=== PATIENT | female | born 1970 | race Caucasian/White ===

== ENCOUNTER → 2022-05-26 | Outpatient (CLI) | payer BC, SELFPAY ==
--- NOTE | 2022-05-26 16:23 | CT_ITS ---
STUDY: CT ABDOMEN AND PELVIS WITHOUT CONTRAST REASON FOR EXAM: Female, 51 years old. L BACK PAIN, KIDNEY STONE RADIATION DOSAGE (If Supplied By Facility): CTDIvol = ( 8.39 ) mGy, DLP = ( 392.12 ) mGycm TECHNIQUE: Transaxial images were obtained from the dome of the diaphragm to the symphysis pubis without oral contrast, and without intravenous contrast. Sagittal and coronal images were reconstructed. Individualized dose optimization techniques were used for this CT. COMPARISON: None. FINDINGS: Lung bases clear. Unremarkable liver, spleen, pancreas, adrenals, and gallbladder on this unenhanced study. Bilateral medullary nephrocalcinosis. Also, nonobstructing stones in the bilateral kidneys measuring up to 0.9 cm. 2 adjacent stones in the mid left ureter at the level of left transverse process of L4 measuring up to 1.1 x 0.5 cm and causing moderate upstream hydroureteronephrosis. Normal appendix. Bowel loops nonobstructed. No free air or free fluid. No adenopathy. No abdominal aortic aneurysm. Sections through the pelvis demonstrate an approximately 2.6 cm cystic area in the left ovary. Nabothian cysts in the cervix. No radiopaque stone in the urinary bladder. Mild multilevel lumbar spondylosis. CT/Abdomen/Pelvis without Cont IMPRESSION: 2 adjacent stones in the mid left ureter causing moderate upstream hydroureteronephrosis. Bilateral measuring a focal stenosis and nonobstructing renal stones. A 2.6 under cystic area in the left ovary, amenable to further evaluation by pelvic ultrasound. Electronically Signed: Sam Metcalf MD at 16:59 EDT ,
== END | disposition home or self-care (01) ==
LOC: CT 16:22
PROVIDERS: PCP Pediatrics; Referring Provider Urology; Visit Provider Urology
DX: N20.0 Calculus of kidney (principal); M54.9 Dorsalgia, unspecified; R11.2 Nausea with vomiting, unspecified; N32.89 Other specified disorders of bladder
CPT/HCPCS: 74176

== ENCOUNTER → 2022-06-01 | Outpatient (CLI) | payer BC, SELFPAY ==
--- NOTE | 2022-06-01 15:20 | RAD_ITS ---
STUDY: AP ABDOMEN PELVIS X-RAY SERIES OF 1529 HOURS ON 06/01/2022 REASON FOR EXAM: 51-year-old female with kidney stones. TECHNIQUE: 2 AP x-rays of the abdomen and pelvis were obtained. COMPARISON: None. FINDINGS: Normal osseous structures. No identification of pelvic bone or hip fractures. No hip dislocations. Mild constipation. No abdominal organomegaly. No abnormal intra-abdominal collections of air. There are multiple calcifications or calculi ranging from 6 mm in length to 2 mm in diameter in the region of the calyces of both kidneys. There is an 8 mm in greatest diameter calcification adjacent to the left L4 transverse process in the region of the left ureter that could possibly represent a left ureteral calculus. Several pelvic phleboliths are noted. RAD/Abdomen Single View IMPRESSION: 1. Multiple calcifications are calculi ranging from 6 mm to 2 mm in diameter in the region of the calyces of both kidneys. 2. Presence of an 8mm in greatest diameter calcification or calculus in the region of the mid left ureter (at the level of the left L4 transverse process). If this does not represent a left ureteral calculus, then it represents a mesenteric calcification. 3. Multiple pelvic phleboliths. 4. No abdominal organomegaly. No abnormal intra-abdominal collections of air. 5. Mild constipation. 6. No intestinal obstruction. 7. Normal osseous structures. Electronically Signed: Deon Orellana MD at 2:48 EDT ,
== END | disposition home or self-care (01) ==
LOC: MTRAD 15:13
PROVIDERS: PCP Pediatrics; Referring Provider Urology; Visit Provider Urology
DX: K59.00 Constipation, unspecified (principal); N20.0 Calculus of kidney
CPT/HCPCS: 74018

== ENCOUNTER 2022-06-05 10:18 | Day surgery (SDC) | payer BC, SELFPAY ==
[2022-06-05] VITALS (11 sets, daily range): BP systolic 111–136; BP diastolic 70–89; PULSE 74–93; RESP 16; TEMP 36.2–37.3; O2SAT 97–100; BMI 25.7
[2022-06-05 10:48] LABS: Internal QC Validated? YES +Cl - CLEAR BKGD; Pregnancy, Urine Negative Negative
[2022-06-05] MEDS: Lactated Ringers 1,000 ML 30 ML IV (11:07)
[2022-06-05] MEDS: Cefazolin 2 GM in 0.9% Normal Saline 100 ML IV (11:49)
--- NOTE | 2022-06-05 11:49 | DCINST_ITS ---
Discharge Instructions Diet Discharge Diet: No restrictions Activity Discharge Activity: Return to Normal Activity, May Not Drive (while on narcotics) and May Shower May resume sexual activity in: No Restrictions Dressing / Incision Call your doctor if you observe: Fever of 101 or Higher, Inability to urinate and Inability to have a bowel movement Follow Up Care Please Follow Up With: Liseth Beyer MD When: 2-3 weeks with KUB for stent removal. call office for appt Test Results: Test results from this visit will be discussed in further detail at your follow- up appointment, if applicable. Discharge Plan Admission Attending Provider: Liseth Beyer Primary Care Provider: Mara Aguayo Discharge Orders/Prescriptions Prescriptions: New ondansetron HCl [ondansetron HCl] 8 mg tablet 8 mg PO Q8H PRN PRN (Reason: Nausea) 7 Days Qty: 20 0RF oxycodone-acetaminophen [Percocet] 5-325 mg tablet 1 tab PO Q8H PRN (Reason: pain) 5 Days Qty: 15 0RF phenazopyridine [Pyridium] 200 mg tablet 200 mg PO TID PRN PRN (Reason: Bladder Spasms) 7 Days Qty: 30 0RF Continued potassium citrate 10 mEq (1,080 mg) tablet extended release 1 tab PO DAILY cephalexin 500 mg Capsule 500 mg PO BID losartan 25 mg tablet 25 mg PO DAILY Label Comments: TAKE 1 TABLET BY MOUTH EVERY DAY Referrals / Follow Up: Mara Aguayo MD [Primary Care Provider] - Disposition Disposition (needs filled in before D/C Order can be placed): Home, Self Care
--- NOTE | 2022-06-05 11:53 | OP.PCM_ITS ---
Report of Operation Date of Procedure: 06/05/22 Pre-Operative Diagnosis: Left ureteral and left renal calculus Post-Operative Diagnosis: Same Surgery/Procedure Performed:: Cystoscopy, left ureteral stent insertion, left ureteral and renal extracorporal shockwave lithotripsy Surgeon: Liseth Beyer Type of Anesthesia: General Specimen's removed: None Description of Procedure: The patient is a 51-year-old female with bilateral renal stones secondary to medullary sponge kidney. She presented to the office with discomfort and was found to have a mid ureteral obstructing stone on the left. She now presents for cystoscopy with left ureteral stent insertion and shockwave lithotripsy. Informed consent was obtained. The patient was taken to the operating room and placed on the lithotripter table. Anesthesia monitored the head, neck, airway, IV access and vital signs throughout the case. Once anesthesia was appropriate ministered the patient was placed into dorsal lithotomy position was prepped and draped in usual sterile fashion. The cystoscope was then inserted through the urethra under direct visualization into the urinary bladder. The bladder mucosa was visualized in its entirety and there were no abnormalities identified. The left ureteral orifice was intubated with an 0.035 Glidewire which passed alongside the stone into the renal pelvis as seen on fluoroscopy. A 6 Sinhala 24 cm JJ stent was then passed over the wire with good curling in the renal pelvis as well as the urinary bladder. The patient's bladder was then emptied and the cystoscope was removed. She was repositioned and 4000 shocks were then applied to the ureteral stone with what appeared to be successful stone management. The stones in the kidney were then shocked as well. The patient was then awakened and taken to the recovery room in good condition. There were no complications during this procedure. Grafts/Implants Used: 6 x 24 JJ stent Complications None Admit VTE Documentation VTE Present on Admission: Yes VTE Mechan Device Prophylaxis: SCD's VTE Pharm Prophylaxis ordered?: No Reason prophylaxis not ordered:: Treatment Not Indicated
[2022-06-05] MEDS: Ketorolac 30 MG/ML Syringe IV (15:36)
[2022-06-05] MEDS: Acetaminophen 325 MG Tablet PO (16:45)
[2022-06-05] MEDS: oxyCODONE 5 MG Tablet PO (16:45)
== END 2022-06-05 17:35 | disposition home or self-care (01) ==
LOC: SDC 10:19 → AC 10:20
PROVIDERS: Anesthesiology; PCP Pediatrics; Referring Provider Urology; Visit Provider Urology
PROC: (CPT 50590; principal; 2022-06-05 11:45)
DX: N20.2 Calculus of kidney with calculus of ureter (principal); I10 Essential (primary) hypertension; Z79.899 Other long term (current) drug therapy
CPT/HCPCS: 50590; 00873; 81025; J7120; C2617; J2405

== ENCOUNTER → 2022-06-19 | Outpatient (CLI) | payer BC, SELFPAY ==
--- NOTE | 2022-06-19 09:15 | RAD_ITS ---
STUDY: AP ABDOMEN X-RAY 0936 HOURS ON 06/19/2022 REASON FOR EXAM: 51-year-old female. Left ureteral stent. TECHNIQUE: A single view AP supine abdomen was performed per protocol. COMPARISON: 05/02/2022. FINDINGS: There has been interval placement of a left ureteral stent since the previous study of 05/02/2022. The upper pigtail is in the region of the left renal pelvis and lower pigtail is in the region of the left bladder. There is no abdominal organomegaly. There are multiple calcifications in the pelvis probably represent phleboliths. There is no distinct evidence of calcification along the path of left ureteral stent. There is mild to moderate constipation. The osseous structures are normal. RAD/Abdomen Single View IMPRESSION: 1. Interval placement of a left ureteral stent since the previous study of 05/02/2022. 2. Several calcifications are noted in the pelvis probably represent phleboliths. There is no distinct calcification along the pathway of the left ureteral stent. 3. No abdominal organomegaly. 4. Mild to moderate constipation. 5. Normal osseous structures. Electronically Signed: Deon Orellana MD at 2:04 EDT ,
== END | disposition home or self-care (01) ==
LOC: MTRAD 09:14
PROVIDERS: PCP Pediatrics; Referring Provider Urology; Visit Provider Urology
DX: N20.0 Calculus of kidney (principal)
CPT/HCPCS: 74018

== ENCOUNTER → 2022-07-01 | Outpatient (CLI) | payer BC, SELFPAY | END | disposition home or self-care (01) | PROVIDERS: PCP Pediatrics; Visit Provider Urology | DX: Z01.812 Encounter for preprocedural laboratory examination (principal); N39.0 Urinary tract infection, site not specified | CPT/HCPCS: 87086; 87088 ==

== ENCOUNTER 2022-07-07 08:50 | Day surgery (SDC) | payer BC, SELFPAY ==
[2022-07-07] VITALS (7 sets, daily range): BP systolic 118–150; BP diastolic 66–100; PULSE 75–97; RESP 16–18; TEMP 36.2–36.9; O2SAT 95–100; BMI 26.2
[2022-07-07] MEDS: Lactated Ringers 1,000 ML 15 ML IV (09:15)
--- NOTE | 2022-07-07 09:58 | OP.PCM_ITS ---
Problems Associated Problem List Diagnoses (1) Left ureteral stone: Report of Operation Date of Procedure: 07/07/22 Pre-Operative Diagnosis: Bilateral renal calculi, left ureteral calculi Post-Operative Diagnosis: Same Surgery/Procedure Performed:: Right renal extracorporal shockwave lithotripsy, cystoscopy with left retrograde pyelogram, right ureteral stent insertion, left distal ureteral extracorporal shockwave lithotripsy Surgeon: Liseth Beyer Type of Anesthesia: General Description of Procedure: The patient is a 51-year-old female with multiple bilateral stones. She is status post left extracorporal shockwave lithotripsy and now presents for treatment of her right side. Informed consent has been obtained. The patient was taken to the operating room placed on the operating room table. Anesthesia monitored the head, neck, airway, IV access and vital signs throughout the case. Once anesthesia was appropriate ministered, the patient was placed into dorsal lithotomy position and was prepped and draped in usual sterile fashion. There were multiple large stones seen along the left ureteral stent. The cystoscope was inserted through the urethra into her bladder using direct visualization. The left ureteral stent was visualized, a Pollick catheter was inserted alongside the stent and a retrograde pyelogram was performed under fluoroscopic visualization confirming several large distal ureteral calculi. At this time the right ureteral orifice was intubated with a 0.035 Glidewire and a 6 [place]ian 24 JJ stent was inserted over the Glidewire with good curling in the renal pelvis as well as the urinary bladder. The patient's bladder was then emptied and the cystoscope was removed. The patient was then repositioned on the table and shockwave lithotripsy of her right kidney was performed with a total of 3000 shocks given. The distal left ureter was then given a total of 3000 shocks and the stones appeared to be well fragmented. She tolerated the procedure well and was awakened and taken to the recovery room in good condition. There were no complications during this procedure. Grafts/Implants Used: 6 x 24 JJ stent Complications None Admit VTE Documentation VTE Present on Admission: Yes VTE Mechan Device Prophylaxis: SCD's VTE Pharm Prophylaxis ordered?: No Reason prophylaxis not ordered:: Treatment Not Indicated
--- NOTE | 2022-07-07 10:00 | DCINST_ITS ---
Discharge Instructions Diet Discharge Diet: No restrictions Activity Discharge Activity: Return to Normal Activity May resume sexual activity in: No Restrictions Dressing / Incision Call your doctor if you observe: Fever of 101 or Higher, Inability to urinate and Inability to have a bowel movement Follow Up Care Please Follow Up With: Liseth Beyer MD When: 3 weeks in the office with a KUB, call for appointment Test Results: Test results from this visit will be discussed in further detail at your follow- up appointment, if applicable. Discharge Plan Admission Attending Provider: Liseth Beyer Primary Care Provider: Mara Aguayo Discharge Orders/Prescriptions Prescriptions: New oxycodone-acetaminophen [oxycodone-acetaminophen] 5-325 mg tablet 2 tab PO Q8H PRN PRN (Reason: Pain) 7 Days Qty: 20 0RF Myrbetriq 50 mg tablet extended release 24 hr 50 mg PO DAILY Qty: 30 0RF methen-sod phos-meth blue-hyos [Urogesic-Blue] 81.6-40.8-0.12 mg tablet 1 tab PO .QID PRN (Reason: bladder spasms) 7 Days Qty: 30 0RF Continued potassium citrate 10 mEq (1,080 mg) tablet extended release 1 tab PO DAILY losartan 25 mg tablet 25 mg PO DAILY Label Comments: TAKE 1 TABLET BY MOUTH EVERY DAY ondansetron HCl 8 mg tablet 8 mg PO Q8H PRN PRN (Reason: Nausea) 7 Days Qty: 20 0RF oxycodone-acetaminophen [Percocet] 5-325 mg tablet 1 tab PO Q8H PRN (Reason: pain) 5 Days Qty: 15 0RF Urelle 81-10.8-40.8 mg Tablet 1 tab PO TID PRN (Reason: Pain) Myrbetriq 50 mg Tablet Extended Release 24 Hr 50 mg PO DAILY Referrals / Follow Up: Mara Aguayo MD [Primary Care Provider] - Disposition Disposition (needs filled in before D/C Order can be placed): Home, Self Care
[2022-07-07] MEDS: Cefazolin 2 GM in 0.9% Normal Saline 100 ML IV (10:42)
[2022-07-07] MEDS: Ondansetron 4 MG/2 ML Vial IV (14:23)
[2022-07-07] MEDS: Phenazopyridine 95 MG Tablet 190 MG PO (15:03)
[2022-07-07] MEDS: Mirabegron 50 MG TAB.ER.24H PO (15:03)
== END 2022-07-07 16:07 | disposition home or self-care (01) ==
LOC: SDC 08:51 → AC 08:52
PROVIDERS: PCP Pediatrics; Referring Provider Urology; Visit Provider Urology
PROC: 0TJ98ZZ Inspection of Ureter, Via Natural or Artificial Opening Endoscopic (ICD-10-PCS; CPT 52352; principal; 2022-07-07 10:10)
DX: N20.2 Calculus of kidney with calculus of ureter (principal); I10 Essential (primary) hypertension; Z79.899 Other long term (current) drug therapy; Q61.5 Medullary cystic kidney
CPT/HCPCS: 52332; 50590; 00910; J7120; C2617; J2405

== ENCOUNTER → 2022-07-28 | Outpatient (CLI) | payer BC, SELFPAY ==
--- NOTE | 2022-07-28 10:34 | RAD_ITS ---
STUDY: X-RAY - ABDOMEN/PELVIS REASON FOR EXAM: Female, 51 years old. KUB- RENAL CALC TECHNIQUE: Single AP view of the abdomen / pelvis. COMPARISON: None. FINDINGS: Bilateral ureteral stents are in good position. Innumerable bilateral kidney stones are noted the largest measures 4 mm is in the right kidney. There is an unremarkable bowel gas pattern. There is no demonstrated free abdominal air. The visualized liver, spleen and kidneys are grossly normal in size . Normal soft tissue structures. Normal visualized osseous structures. RAD/Abdomen Single View IMPRESSION: Bilateral ureteral stents are in good position. Innumerable bilateral kidney stones are noted the largest measures 4 mm is in the right kidney. Electronically Signed: Luis Lazo MD at 13:00 EDT ,
== END | disposition home or self-care (01) ==
PROVIDERS: PCP Pediatrics; Referring Provider Urology; Visit Provider Urology
DX: N20.0 Calculus of kidney (principal)
CPT/HCPCS: 74018

== ENCOUNTER → 2022-09-30 | Outpatient (CLI) | payer BC, SELFPAY ==
--- NOTE | 2022-09-30 09:01 | RAD_ITS ---
STUDY: X-RAY - ABDOMEN/PELVIS REASON FOR EXAM: Female, 51 years old. Renal stones. TECHNIQUE: Single AP view of the abdomen / pelvis on 2 images. COMPARISON: July 28, 2022. FINDINGS: Bilateral ureteral stents have been removed since the prior study. Multiple small calcifications projected over both kidneys, slightly decreased since the prior study. Normal bowel gas pattern with air seen to the rectum. The visualized liver, spleen and kidneys are grossly normal in size and morphology. Phleboliths. Normal visualized osseous structures. RAD/Abdomen Single View IMPRESSION: Removal of bilateral ureteral stents. Calcifications projected over both kidneys which have decreased in number since the prior study. No acute finding. Electronically Signed: Frank Hoang, at 10:19 EST ,
== END | disposition home or self-care (01) ==
PROVIDERS: PCP Pediatrics; Referring Provider Urology; Visit Provider Urology
DX: N20.0 Calculus of kidney (principal)
CPT/HCPCS: 74018

== ENCOUNTER 2022-10-08 11:44 | Day surgery (SDC) | payer BC, SELFPAY ==
[2022-10-08] VITALS (8 sets, daily range): BP systolic 114–130; BP diastolic 65–94; PULSE 75–93; RESP 16–17; TEMP 36.4–36.8; O2SAT 92–100; BMI 26.9
[2022-10-08] MEDS: Lactated Ringers 1,000 ML 15 ML IV ×2 (12:10→17:40)
[2022-10-08] MEDS: Cefazolin 2 GM in 0.9% Normal Saline 100 ML IV (14:22)
--- NOTE | 2022-10-08 15:31 | DCINST_ITS ---
Discharge Instructions Diet Discharge Diet: No restrictions Activity Discharge Activity: Return to Normal Activity Dressing / Incision Call your doctor if you observe: Fever of 101 or Higher, Inability to urinate and Inability to have a bowel movement Follow Up Care Please Follow Up With: Liseth Beyer MD When: in office with JAROD in 2-3 weeks Test Results: Test results from this visit will be discussed in further detail at your follow- up appointment, if applicable. Discharge Plan Admission Attending Provider: Liseth Beyer Primary Care Provider: Mara Aguayo Discharge Orders/Prescriptions Prescriptions: New oxycodone-acetaminophen [oxycodone-acetaminophen] 5-325 mg tablet 1 tab PO Q8H PRN PRN (Reason: Pain) 3 Days Qty: 14 0RF cephalexin [cephalexin] 500 mg capsule 500 mg PO Q12 3 Days Qty: 6 0RF Continued potassium citrate 10 mEq (1,080 mg) tablet extended release 1 tab PO DAILY valsartan-hydrochlorothiazide 160-25 mg Tablet 1 tab PO DAILY Referrals / Follow Up: Mara Aguayo MD [Primary Care Provider] - Disposition Disposition (needs filled in before D/C Order can be placed): Home, Self Care
--- NOTE | 2022-10-08 15:33 | PCM.OPRPT ---
Report of Operation Date of Procedure: 10/08/22 Pre-Operative Diagnosis: Right renal stones Post-Operative Diagnosis: Same Surgery/Procedure Performed:: Right renal extracorporal shockwave lithotripsy Surgeon: Liseth Beyer Type of Anesthesia: General Description of Procedure: Jess has known right renal stones and presents today for definitive surgical intervention with extracorporal shockwave lithotripsy. Informed consent was obtained. The patient was taken to the operating room and placed on the operating room table. Anesthesia monitored the head, neck, airway, IV access and vital signs throughout the case. Once anesthesia was appropriately administered, the patient was aligned with the lithotripter. The stones were easily identified. A total of 3000 shocks were applied to the stones which appeared to be well fragmented at the conclusion of the case. The patient was then awakened and taken to the recovery room in good condition. There were no complications during this procedure. Complications None Admit VTE Documentation VTE Present on Admission: Yes VTE Mechan Device Prophylaxis: SCD's VTE Pharm Prophylaxis ordered?: No Reason prophylaxis not ordered:: Treatment Not Indicated
--- NOTE | 2022-10-08 17:28 | SUR.PHASEII ---
PATIENT REPEATEDLY C/O DIZZINESS. REEDUCATED ON SIDE EFFECTS OF GENERAL ANESTHESIA AND NARCOTIC ADMINISTRATION. NO NAUSEA AT THIS TIME. PATIENT STATES THIS IS HER THIRD SURGERY FOR KIDNEY STONES SINCE JUNE, REPORTS SHE HAD DIZZINESS AFTER THOSE PROCEDURES WELL. SUPPORT & REASSURANCE PROVIDED. AT BEDSIDE.
== END 2022-10-08 19:06 | disposition home or self-care (01) ==
LOC: SDC 11:46 → AC 12:03
PROVIDERS: PCP Pediatrics; Referring Provider Urology; Visit Provider Urology
PROC: (CPT 50590; principal; 2022-10-08 13:40)
DX: N20.0 Calculus of kidney (principal); I10 Essential (primary) hypertension; Z79.899 Other long term (current) drug therapy
CPT/HCPCS: 50590; 00873; J7120; J2405

== ENCOUNTER → 2022-10-26 | Outpatient (CLI) | payer BC, SELFPAY ==
--- NOTE | 2022-10-26 14:01 | RAD_ITS ---
STUDY: X-RAY - ABDOMEN/PELVIS REASON FOR EXAM: Female, 52 years old. STONES TECHNIQUE: Two AP supine views of the abdomen and pelvis. There is one focal view KUB one view of the pelvis. COMPARISON: May 26, 2022 CT scan abdomen and pelvis on the September 30, 2022 KUB FINDINGS: Normal visualized lung bases. The lung bases are mostly out of the [id number]. There is no demonstrated free abdominal air. Multiple punctate calcifications seen in the left upper quadrant which likely represent the nephrolithiasis seen on prior study. There is a vague demonstration of calcification in the right upper quadrant, right kidney. There is partial visualization of the right kidney due to overlying moderate stool within the colon. There are stable phleboliths within the pelvis. RAD/Abdomen Single View IMPRESSION: Bilateral nephrolithiasis. Stable bilateral pelvic phleboliths. Mild to moderate stool in the colon. Electronically Signed: Ondina Crum MD at 17:40 EST ,
== END | disposition home or self-care (01) ==
PROVIDERS: PCP Pediatrics; Referring Provider Urology; Visit Provider Urology
DX: N20.0 Calculus of kidney (principal)
CPT/HCPCS: 74018

== ENCOUNTER → 2023-08-24 | Outpatient (CLI) | payer BC, SELFPAY ==
--- NOTE | 2023-08-24 10:00 | RAD_ITS ---
STUDY: X-RAY - ABDOMEN/PELVIS REASON FOR EXAM: Female, 52 years old. History of kidney stones. TECHNIQUE: Single AP view of the abdomen / pelvis on 2 images. COMPARISON: October 2022. FINDINGS: Normal visualized lung bases. Overlying bowel gas and feces obscure much of the renal shadows. Multiple small calcifications projected over both renal shadows compatible bilateral nephrocalcinosis. Normal soft tissue structures. Normal visualized osseous structures. RAD/Abdomen Single View IMPRESSION: Bilateral nephrocalcinosis. See discussion above. Electronically Signed: Frank Hoang MD at 15:39 EDT ,
== END | disposition home or self-care (01) ==
PROVIDERS: PCP Pediatrics; Referring Provider Urology; Visit Provider Urology
DX: N20.0 Calculus of kidney (principal)
CPT/HCPCS: 74018

== ENCOUNTER → 2023-12-17 | Outpatient (CLI) | payer BC, SELFPAY ==
--- NOTE | 2023-12-17 18:57 | CT_ITS ---
STUDY: CT ABDOMEN AND PELVIS WITHOUT CONTRAST REASON FOR EXAM: Female, 53 years old. KIDNEY STONES RADIATION DOSAGE (If Supplied By Facility): CTDIvol = ( 7.15 ) mGy, DLP = ( 346.46 ) mGycm TECHNIQUE: Transaxial images were obtained from the dome of the diaphragm to the symphysis pubis without oral contrast, and without intravenous contrast. Sagittal and coronal images were reconstructed. Individualized dose optimization techniques were used for this CT. COMPARISON: 05/26/2022. FINDINGS: The visualized lung bases are unremarkable. The visualized portions of the heart are within normal limits. Normal liver. Normal gallbladder and extrahepatic biliary system. Normal spleen. Normal pancreas. Normal bilateral adrenal glands. Bilateral calcifications in the distribution of the medullary appearance consistent with medullary nephrocalcinosis. Additional numerous more compact calcifications along the junction of medullary pyramids and renal sinuses, largest on the right averaging approximately 4 mm and largest on the left averaging approximately 4.7 mm consistent with renal stones. Otherwise normal bilateral kidneys with no hydronephrosis. Normal visualized stomach. Normal small intestine. Normal colon. The appendix is visualized and appears normal. Normal abdominal aorta. Normal inferior vena cava. Normal retroperitoneum. Normal urinary bladder. The uterus is anteverted with a right-sided nabothian cyst measuring 2 cm. There is a left ovarian cyst measuring 3.1 x 3.2 cm. Additional smaller left-sided ovarian cyst visualized. Normal abdominal wall. Normal osseous structures. CT/Abdomen/Pelvis without Cont IMPRESSION: Bilateral nephrocalcinosis with additional numerous bilateral superimposed renal stones with no hydronephrosis. Remainder of abdominal viscera are unremarkable. No acute appendicitis or bowel obstruction. Electronically Signed: Mila Lopez MD at 19:39 EST ,
== END | disposition home or self-care (01) ==
LOC: CT 18:47
PROVIDERS: PCP Pediatrics; Referring Provider Urology; Visit Provider Urology
DX: N20.0 Calculus of kidney (principal)
CPT/HCPCS: 74176

== ENCOUNTER → 2024-09-15 | Outpatient (CLI) | payer BC, SELFPAY ==
--- NOTE | 2024-09-15 09:29 | RAD_ITS ---
STUDY: X-RAY - ABDOMEN/PELVIS REASON FOR EXAM: Female, 53 years old. KUB- KIDNEY STONES TECHNIQUE: Frontal views COMPARISON: None. FINDINGS: Normal visualized lung bases. There is an unremarkable bowel gas pattern. Mild colonic fecal retention. There is no demonstrated free abdominal air. Calcifications over the renal shadows bilaterally suggesting nephrocalcinosis. Normal soft tissue structures. Normal visualized osseous structures. RAD/Abdomen Single View IMPRESSION: Bilateral nephrocalcinosis. Electronically Signed: Darrel Alvarez DO at 17:03 EDT ,
== END | disposition home or self-care (01) ==
LOC: MTRAD 09:27
PROVIDERS: PCP Pediatrics; Referring Provider Urology; Visit Provider Urology
DX: N20.0 Calculus of kidney (principal)
CPT/HCPCS: 74018

== ENCOUNTER → 2025-03-16 | Outpatient (CLI) | payer BC, SELFPAY ==
--- NOTE | 2025-03-16 09:55 | RAD_ITS ---
PROCEDURE: ABDOMEN SINGLE VIEW 03/16/2025 REASON FOR EXAM: KUB- KIDNEY STONES TECHNIQUE: Single view abdomen. COMPARISON: None available. FINDINGS: Bowel gas: Large amount of fecal material is seen throughout the colon Calcifications: Multiple tiny calcifications are seen overlying the left kidney. Faint calcification is seen overlying the transverse process of the L3 vertebrae on the left side. Bones: The bones are unremarkable. Other: 4 mm calcification in the right hemipelvis as well as a 3 mm calcification in the left hemipelvis. This may represent phleboliths. RAD/Abdomen Single View IMPRESSION: Small left intrarenal calculi and probable calculus in the mid left ureter. Findings suggestive of phleboliths in the pelvis. Large amount of fecal material is seen in the colon. Reading Location: [place] [id number]
== END | disposition home or self-care (01) ==
LOC: MTRAD 09:53
PROVIDERS: PCP Pediatrics; Referring Provider Urology; Visit Provider Urology
DX: N20.0 Calculus of kidney (principal)
CPT/HCPCS: 74018

== ENCOUNTER → 2025-09-12 | Outpatient (CLI) | payer BC, SELFPAY ==
--- NOTE | 2025-09-12 09:46 | RAD_ITS ---
PROCEDURE: ABDOMEN SINGLE VIEW 09/12/2025 REASON FOR EXAM: KUB- KIDNEY STONES TECHNIQUE: Procedure Code: RADABD Modality: DX Procedure: ABDOMEN SINGLE VIEW COMPARISON: Abdomen study of 03/16/2025 RAD/Abdomen Single View IMPRESSION: Numerous tiny bilateral renal calculi are seen, [id number]. Stable bilateral pelvic calcifications. No interval osseous changes noted. The bowel-gas pattern is unremarkable. Reading Location: [id number]
== END | disposition home or self-care (01) ==
LOC: MTRAD 09:45
PROVIDERS: PCP Pediatrics; Referring Provider Urology; Visit Provider Urology
DX: N20.0 Calculus of kidney (principal)
CPT/HCPCS: 74018